=== PATIENT | male | born 1970 | race Native Hawaiian/Other Pacific Islander ===

== ENCOUNTER 2018-04-12 15:48 | Emergency (ER) | payer OTHER ==
[~2018-04-12] VITALS: Ht 182.9 cm; Wt 104.3 kg
[2018-04-12] MEDS ORDERED: TYLENOL325 MG PO (16:19)
[2018-04-12] MEDS ORDERED: ALPR0.5T24 PO (16:20)
[2018-04-12] MEDS ORDERED: ADDERALL20 MG PO (16:20)
[2018-04-12] MEDS ORDERED: ADVIL200 M1 PO (16:22)
[2018-04-12] MEDS ORDERED: MULTIVITAMI1 PO (16:22)
[2018-04-12] MEDS ORDERED: DULO30CA PO (16:25)
[2018-04-12 17:27] LABS: PLATELET COUNT 164 K/uL (142-355)
[2018-04-12 17:33] LABS: POTASSIUM 4.1 mmol/L (3.6-5.2)
[2018-04-12 17:48] LABS: PARTIAL THROMBOPLASTIN TIME 27.6 SECONDS (24.5-33.6)
[2018-04-12 18:58] VITALS: BP 178/78; TEMP 98.6
== END 2018-04-12 19:05 | disposition home or self-care (01) ==
LOC: ED 15:48
PROVIDERS: Family Medicine
DX: N12 Tubulo-interstitial nephritis, not specified as acute or chronic (principal); R31.9 Hematuria, unspecified
CPT/HCPCS: 36415; 80053; 81000; 85027; 85610; 85730; 87077; 87086; 87088; 87186; 96365; 96375; 99284; J0696; J1885

== ENCOUNTER 2018-11-27 13:55 | Outpatient (CLI) | payer OTHER ==
[~2018-11-27 13:55] MED LIST: ADDERALL20 MG PO; ADVIL200 M1 PO; ALPR0.5T24 PO; DULO30CA PO; MULTIVITAMI1 PO; TYLENOL325 MG PO
== END 2018-11-27 23:33 | disposition home or self-care (01) ==
LOC: RAD 13:55
DX: R07.81 Pleurodynia (principal)